=== PATIENT | female | born 1955 | race Caucasian/White ===

== ENCOUNTER → 2016-07-11 | Outpatient (CLI) | payer OTHER ==
[2016-07-11 14:41] LABS: MEAN CORPUSCULAR HEMOGLOBIN 26.8 pg (27.0-33.0); MEAN CORPUSCULAR HGB CONC 31.8 g/dl (32.0-36.5); MEAN CORPUSCULAR VOLUME 84.3 fl (80.0-96.0); RED CELL DISTRIBUTION WIDTH 13.3 % (11.5-14.5); WHITE BLOOD COUNT 5.3 K/mm3 (4.0-10.0)
[2016-07-11 15:43] LABS: VITAMIN B12 LEVEL 447 PG/ML (247-911)
[2016-07-11 15:54] LABS: ALBUMIN/GLOBULIN RATIO 1.33 (1.00-1.93); ALKALINE PHOSPHATASE 51 U/L (45-117); ALT/SGPT 18 U/L (12-78); ANION GAP 11 MEQ/L (8-16); AST/SGOT 16 U/L (15-37); BILIRUBIN,TOTAL 0.6 MG/DL (0.2-1.0); BLOOD UREA NITROGEN 10 MG/DL (7-18); CALCIUM LEVEL 9.3 MG/DL (8.8-10.2); CARBON DIOXIDE LEVEL 26 MEQ/L (21-32); CHLORIDE LEVEL 105 MEQ/L (98-107); CHOLESTEROL LEVEL 214 MG/DL (<200); CREATININE FOR GFR 0.76 MG/DL (0.55-1.02); FERRITIN 13 NG/ML (8-252); GLOMERULAR FILTRATION RATE > 60.0 (>45); GLUCOSE, FASTING 93 MG/DL (80-110); PERCENT SATURATION 20.6 % (13.2-37.4); POTASSIUM SERUM 4.3 MEQ/L (3.5-5.1); SODIUM LEVEL 142 MEQ/L (136-145); TOTAL IRON BINDING CAPACITY 436 UG/DL (250-450); TRIGLYCERIDES LEVEL 72 MG/DL (<150)
== END ==
LOC: M WUC 11:53
PROVIDERS: ATTEND Nurse Practitioner Adult Health
DX: Z86.2 Personal history of diseases of the blood and blood-forming organs and certain disorders involving the immune mechanism (principal); Z00.00 Encounter for general adult medical examination without abnormal findings

== ENCOUNTER → 2016-10-11 | Outpatient (CLI) | payer OTHER ==
[2016-10-14 00:06] LABS: Lyme Disease IgG/IgM Antibodie <0.91 ISR (0.00-0.90); Lyme Disease IgM Ab Quantitati <0.80 index (0.00-0.79)
== END ==
LOC: M WUC 16:40
PROVIDERS: ATTEND Nurse Practitioner Adult Health
DX: S80.869A Insect bite (nonvenomous), unspecified lower leg, initial encounter (principal); W57.XXXA Bitten or stung by nonvenomous insect and other nonvenomous arthropods, initial encounter; Y92.009 Unspecified place in unspecified non-institutional (private) residence as the place of occurrence of the external cause

== ENCOUNTER → 2017-09-08 | Outpatient (CLI) | payer OTHER ==
[2017-09-08 13:28] LABS: HEMOGLOBIN 13.1 g/dl (12.0-15.5); MEAN CORPUSCULAR HEMOGLOBIN 26.7 pg (27.0-33.0); MEAN CORPUSCULAR HGB CONC 32.8 g/dl (32.0-36.5); MEAN CORPUSCULAR VOLUME 81.5 fl (80.0-96.0); PLATELET COUNT, AUTOMATED 251 10^3/uL (150-450); RED BLOOD COUNT 4.91 10^6/uL (4.00-5.40); RED CELL DISTRIBUTION WIDTH 12.9 % (11.5-14.5); WHITE BLOOD COUNT 5.3 10^3/uL (4.0-10.0)
[2017-09-08 13:47] LABS: ALBUMIN 3.6 GM/DL (3.2-5.2); ALBUMIN/GLOBULIN RATIO 1.03 (1.00-1.93); ALKALINE PHOSPHATASE 56 U/L (45-117); ALT/SGPT 17 U/L (12-78); ANION GAP 7 MEQ/L (8-16); AST/SGOT 12 U/L (7-37); BILIRUBIN,TOTAL 0.6 MG/DL (0.2-1.0); BLOOD UREA NITROGEN 9 MG/DL (7-18); CALCIUM LEVEL 8.7 MG/DL (8.8-10.2); CARBON DIOXIDE LEVEL 28 MEQ/L (21-32); CHLORIDE LEVEL 108 MEQ/L (98-107); CHOLESTEROL LEVEL 212 MG/DL (<200); CHOLESTEROL RISK RATIO 3.925 (<5); CREATININE FOR GFR 0.59 MG/DL (0.55-1.30); GLOMERULAR FILTRATION RATE > 60.0 (>45); GLUCOSE, FASTING 92 MG/DL (70-100); HDL CHOLESTEROL 54 MG/DL (>40); LDL CHOLESTEROL 136.6 MG/DL (<100); NON-HDL-C 158 MG/DL; POTASSIUM SERUM 4.6 MEQ/L (3.5-5.1); SODIUM LEVEL 143 MEQ/L (136-145); THYROID STIMULATING HORMONE 0.921 uIU/ML (0.358-3.740); TOTAL PROTEIN 7.1 GM/DL (6.4-8.2); TRIGLYCERIDES LEVEL 107 MG/DL (<150)
[2017-09-09 09:55] LABS: VITAMIN B12 LEVEL 683 PG/ML (247-911)
[2017-09-11 14:47] LABS: VITAMIN D 1,25 DIHYDROXY 76.1 pg/mL (19.9-79.3)
== END ==
LOC: M WUC 11:11
DX: Z00.00 Encounter for general adult medical examination without abnormal findings (principal); E55.9 Vitamin D deficiency, unspecified; E53.8 Deficiency of other specified B group vitamins; Z86.2 Personal history of diseases of the blood and blood-forming organs and certain disorders involving the immune mechanism
CPT/HCPCS: 84443

== ENCOUNTER → 2018-08-25 | Outpatient (REF) | payer MEDICARE, OTHER ==
[2018-08-25 09:52] LABS: HEMATOCRIT 40.4 % (36.0-47.0); HEMOGLOBIN 12.9 g/dl (12.0-15.5); MEAN CORPUSCULAR HEMOGLOBIN 27.6 pg (27.0-33.0); MEAN CORPUSCULAR HGB CONC 31.9 g/dl (32.0-36.5); MEAN CORPUSCULAR VOLUME 86.3 fl (80.0-96.0); PLATELET COUNT, AUTOMATED 224 10^3/uL (150-450); RED BLOOD COUNT 4.68 10^6/uL (4.00-5.40); WHITE BLOOD COUNT 5.4 10^3/uL (4.0-10.0)
[2018-08-25 10:39] LABS: ALBUMIN 3.6 GM/DL (3.2-5.2); ALT/SGPT 22 U/L (12-78); BILIRUBIN,TOTAL 0.5 MG/DL (0.2-1.0); BLOOD UREA NITROGEN 12 MG/DL (7-18); CALCIUM LEVEL 8.5 MG/DL (8.8-10.2); CARBON DIOXIDE LEVEL 27 MEQ/L (21-32); CHLORIDE LEVEL 108 MEQ/L (98-107); CHOLESTEROL LEVEL 209 MG/DL (<200); CHOLESTEROL RISK RATIO 3.166 (<5); FERRITIN 7 NG/ML (8-252); GLOMERULAR FILTRATION RATE > 60.0 (>45); GLUCOSE, FASTING 92 MG/DL (70-100); HDL CHOLESTEROL 66 MG/DL (>40); IRON (FE) 43 UG/DL (50-170); LDL CHOLESTEROL 132 MG/DL (<100); NON-HDL-C 143 MG/DL; PERCENT SATURATION 9.5 % (13.2-45.0); POTASSIUM SERUM 4.5 MEQ/L (3.5-5.1); SODIUM LEVEL 144 MEQ/L (136-145); TOTAL 25(OH) VITAMIN D 48.2 NG/ML (30.0-100.0); TOTAL IRON BINDING CAPACITY 453 UG/DL (250-450); TOTAL PROTEIN 6.8 GM/DL (6.4-8.2); TRIGLYCERIDES LEVEL 55 MG/DL (<150)
[2018-08-25 11:07] LABS: VITAMIN B12 LEVEL 552 PG/ML (247-911)
== END ==
LOC: M SFHCPLAZ 08:13
PROVIDERS: ATTEND Nurse Practitioner Adult Health
DX: Z00.00 Encounter for general adult medical examination without abnormal findings (principal); E55.9 Vitamin D deficiency, unspecified; E53.8 Deficiency of other specified B group vitamins; Z86.2 Personal history of diseases of the blood and blood-forming organs and certain disorders involving the immune mechanism

== ENCOUNTER → 2019-09-15 | Outpatient (CLI) | payer MEDICARE, OTHER ==
[2019-09-15 11:02] LABS: HEMATOCRIT 42.4 % (36.0-47.0); HEMOGLOBIN 13.2 g/dl (12.0-15.5); MEAN CORPUSCULAR HEMOGLOBIN 26.5 pg (27.0-33.0); MEAN CORPUSCULAR HGB CONC 31.1 g/dl (32.0-36.5); MEAN CORPUSCULAR VOLUME 85.1 fl (80.0-96.0); PLATELET COUNT, AUTOMATED 248 10^3/uL (150-450); RED BLOOD COUNT 4.98 10^6/uL (4.00-5.40); WHITE BLOOD COUNT 5.1 10^3/uL (4.0-10.0)
[2019-09-15 11:53] LABS: ALBUMIN 3.9 GM/DL (3.2-5.2); ALT/SGPT 28 U/L (12-78); BILIRUBIN,TOTAL 0.6 MG/DL (0.2-1.0); BLOOD UREA NITROGEN 10 MG/DL (7-18); CALCIUM LEVEL 9.2 MG/DL (8.8-10.2); CARBON DIOXIDE LEVEL 28 MEQ/L (21-32); CHLORIDE LEVEL 107 MEQ/L (98-107); CHOLESTEROL LEVEL 240 MG/DL (<200); CHOLESTEROL RISK RATIO 3.636 (<5); CREATININE FOR GFR 0.67 MG/DL (0.55-1.30); FERRITIN 8 NG/ML (8-252); GLOMERULAR FILTRATION RATE > 60.0 (>45); GLUCOSE, FASTING 89 MG/DL (70-100); HDL CHOLESTEROL 66 MG/DL (>40); IRON (FE) 103 UG/DL (50-170); LDL CHOLESTEROL 158 MG/DL (<100); NON-HDL-C 174 MG/DL; POTASSIUM SERUM 4.5 MEQ/L (3.5-5.1); SODIUM LEVEL 140 MEQ/L (136-145); TOTAL PROTEIN 7.4 GM/DL (6.4-8.2); TRIGLYCERIDES LEVEL 82 MG/DL (<150)
[2019-09-15 13:57] LABS: VITAMIN B12 LEVEL 1103 PG/ML (247-911)
== END ==
LOC: M WUC 08:14
PROVIDERS: ATTEND Nurse Practitioner Adult Health
DX: Z00.00 Encounter for general adult medical examination without abnormal findings (principal); E55.9 Vitamin D deficiency, unspecified; E53.8 Deficiency of other specified B group vitamins; Z86.2 Personal history of diseases of the blood and blood-forming organs and certain disorders involving the immune mechanism; Z13.220 Encounter for screening for lipoid disorders

== ENCOUNTER → 2019-09-15 | Outpatient (CLI) | payer MEDICARE, OTHER ==
[2019-09-17 18:07] LABS: Lyme Disease IgG/IgM Antibodie <0.91 ISR (0.00-0.90); Lyme Disease IgM Ab Quantitati <0.80 index (0.00-0.79)
== END ==
LOC: M WUC 14:53
PROVIDERS: ATTEND Nurse Practitioner Family
DX: S00.86XA Insect bite (nonvenomous) of other part of head, initial encounter (principal); W57.XXXA Bitten or stung by nonvenomous insect and other nonvenomous arthropods, initial encounter; Y92.9 Unspecified place or not applicable

== ENCOUNTER 2020-06-25 13:35 | Emergency (ER) | payer MEDICARE, OTHER ==
[~2020-06-25] VITALS: Ht 157.5 cm; Wt 79.5 kg
[2020-06-25] MEDS ORDERED: CLON-412 PO (14:01)
[2020-06-25] MEDS ORDERED: LISI10TA22 PO (14:01)
--- NOTE | 2020-06-25 14:21 | REP ---
INDICATION: WEAKNESS. COMPARISON: None. TECHNIQUE: CT BRAIN PERFORMED IN THE AXIAL PLANE. CORONAL RECONSTRUCTION IMAGES ARE PERFORMED. FINDINGS: THE VENTRICLES ARE NORMAL IN SIZE AND POSITION. THERE IS NO MIDLINE SHIFT OR MASS EFFECT. GUILLERMO-WHITE DIFFERENTIATION IS WELL MAINTAINED. THERE IS NO ACUTE INTRACRANIAL HEMORRHAGE OR EXTRA-AXIAL FLUID COLLECTION. BONE WINDOW EXAMINATION IS UNREMARKABLE. VISUALIZED MASTOID AIR CELLS AND PARANASAL SINUSES ARE CLEAR. There are mild vascular calcifications in the carotid siphons. IMPRESSION: NEGATIVE NONCONTRAST CT BRAIN. <Electronically signed by Bean Guillermo > 06/25/20 [id number]
[2020-06-25] MEDS ORDERED: NS 1,000 ML IV SCH (14:25)
[2020-06-25 14:38] LABS: BASO # 0.1 10^3/uL (0.0-0.2); EOS # 0.4 10^3/uL (0.0-0.5); EOS % 6.7 % (0.0-3.0); HEMOGLOBIN 12.6 g/dl (12.0-15.5); LYMPH # 1.9 10^3/uL (1.5-5.0); LYMPH % 33.4 % (24.0-44.0); MEAN CORPUSCULAR HEMOGLOBIN 26.2 pg (27.0-33.0); MEAN CORPUSCULAR HGB CONC 31.5 g/dl (32.0-36.5); MEAN CORPUSCULAR VOLUME 83.2 fl (80.0-96.0); MONO # 0.5 10^3/uL (0.0-0.8); NEUTROPHILS # 2.9 10^3/uL (1.5-8.5); NEUTROPHILS % 49.7 % (36.0-66.0); PLATELET COUNT, AUTOMATED 226 10^3/uL (150-450); RED BLOOD COUNT 4.81 10^6/uL (4.00-5.40); WHITE BLOOD COUNT 5.8 10^3/uL (4.0-10.0)
[2020-06-25 15:01] LABS: ALBUMIN 3.6 GM/DL (3.2-5.2); ALT/SGPT 21 U/L (12-78); BILIRUBIN,DIRECT 0.1 MG/DL (0.0-0.2); BILIRUBIN,TOTAL 0.5 MG/DL (0.2-1.0); BLOOD UREA NITROGEN 10 MG/DL (7-18); CALCIUM LEVEL 8.8 MG/DL (8.8-10.2); CARBON DIOXIDE LEVEL 29 MEQ/L (21-32); CHLORIDE LEVEL 110 MEQ/L (98-107); CK-MB VALUE MASS < 1.0 NG/ML (<3.6); CPK CREATINE PHOSPHOKINASE 49 U/L (26-192); CREATININE FOR GFR 0.62 MG/DL (0.55-1.30); GLOMERULAR FILTRATION RATE > 60.0 (>45); GLUCOSE, FASTING 87 MG/DL (70-100); LIPASE 61 U/L (73-393); MAGNESIUM LEVEL 2.3 MG/DL (1.8-2.4); MB/CK RELATIVE INDEX 2.04 (< OR =4); POTASSIUM SERUM 4.1 MEQ/L (3.5-5.1); SODIUM LEVEL 142 MEQ/L (136-145); TOTAL PROTEIN 6.6 GM/DL (6.4-8.2); TROPONIN I < 0.02 NG/ML (< 0.10)
--- NOTE | 2020-06-25 17:20 | REPVR ---
PROCEDURE INFORMATION: Exam: MR Head Without Contrast Exam date and time: 06/25/2020 3:11 PM Age: 65 years old Clinical indication: Weakness, extremity; Left; Additional info: Left leg weak TECHNIQUE: Imaging protocol: MR of the head without contrast. COMPARISON: CT Head without contrast 06/25/2020 1:58 PM FINDINGS: Brain: Patchy T2 prolongation in the cerebral white matter is nonspecific, but likely secondary to microvascular disease. Diffusion images are normal. No evidence of acute infarction. No evidence of acute intracranial hemorrhage. No extra-axial fluid collections. Ventricles and cerebrospinal fluid spaces are normal in size and configuration for the patient's age. There is no evidence of mass-effect or midline shift. Flow voids of the pilot point of [place] and major cerebral vascular structures appear intact. Craniocervical junction appears unremarkable, with normal position of cerebellar tonsils and no evidence of Chiari I malformation. Cerebral ventricles: Normal. No ventriculomegaly. Bones/joints: Unremarkable as visualized. Paranasal sinuses: There is mucosal thickening in maxillary and ethmoid sinuses and small maxillary sinuses retention cysts or polyps. Mastoid air cells: No significant mastoid effusion. Orbital cavity: Unremarkable. Soft tissues: Unremarkable as visualized. IMPRESSION: 1. No acute infarct or hemorrhage. No evidence mass lesion. Microvascular changes. 2. Given the patients clinical history and / or findings on MRI, MRA to assess the intracranial vascular system would be appropriate. Electronically signed by: Brandi Glaser On 06/25/2020 17:20:41 PM
--- NOTE | 2020-06-25 17:21 | REPVR ---
PROCEDURE INFORMATION: Exam: MRA Head Without Contrast; Arteriography Exam date and time: 06/25/2020 3:11 PM Age: 65 years old Clinical indication: Weakness; Additional info: Left leg weak TECHNIQUE: Imaging protocol: Magnetic resonance angiography head without contrast. Exam focused on the arteries. COMPARISON: CT Head without contrast 06/25/2020 1:58 PM FINDINGS: ANTERIOR CIRCULATION: Right internal carotid artery: Right internal carotid artery is patent with no thrombosis, or occlusion. There is a small protrusion from right internal carotid artery posteriorly at supraclinoid level. This is fairly conical in shape measuring approximately 1 mm and is favored to be infundibulum. This could also be further evaluated with CTA. Right middle cerebral artery: No occlusion or significant stenosis. No aneurysm. Right anterior cerebral artery: No occlusion or significant stenosis. No aneurysm. Left internal carotid artery: Left internal carotid artery is patent without stenosis, thrombosis, or occlusion. There is a small prominent/protrusion of approximately 1.5 mm as visualized from supraclinoid aspect left ICA which appears to be at level of ophthalmic artery and could be infundibulum since the ophthalmic artery appears to possibly arise from apex. Small aneurysm is however not excluded. This may be further evaluated improved resolution of small vascular abnormalities with CTA. Recommend MIP and 3D reformatted images. Left middle cerebral artery: No occlusion or significant stenosis. No aneurysm. Left anterior cerebral artery: No occlusion or significant stenosis. No aneurysm. POSTERIOR CIRCULATION: Right vertebral artery: No occlusion or significant stenosis. No aneurysm. Left vertebral artery: No occlusion or significant stenosis. No aneurysm. Basilar artery: No occlusion or significant stenosis. No aneurysm. Patent superior cerebellar arteries. Right posterior cerebral artery: No occlusion or significant stenosis. No aneurysm. Left posterior cerebral artery: No occlusion or significant stenosis. No aneurysm. IMPRESSION: 1. No intracranial vascular stenosis or occlusion. 2. Small protrusion from posterior right supraclinoid ICA favored to be infundibulum. Small protrusion from anterior supraclinoid left ICA appears to rise at level of ophthalmic artery and could also be infundibulum but aneurysm is not excluded. Consider CTA in further evaluation. Electronically signed by: Brandi Glaser On 06/25/2020 17:21:33 PM
[2020-06-25] MEDS ORDERED: ISOVUE-370 76% 100ML VIAL As Ordered ONE (17:58)
--- NOTE | 2020-06-25 18:37 | REPVR ---
PROCEDURE INFORMATION: Exam: CT Angiography Neck With Contrast Exam date and time: 06/25/2020 6:09 PM Age: 65 years old Clinical indication: Abnormal findings; Abnormal mri of head; Additional info: ? Aneurysm on mri TECHNIQUE: Imaging protocol: Computed tomography angiography of the neck with contrast. 3D rendering (Not supervised by radiologist): MIP and/or 3D reconstructed images were created by the technologist. Radiation optimization: All CT scans at this facility use at least one of these dose optimization techniques: automated exposure control; mA and/or kV adjustment per patient size (includes targeted exams where dose is matched to clinical indication); or iterative reconstruction. Contrast material: ISOVUE 370; Contrast volume: 100 ml; Contrast route: INTRAVENOUS (IV); COMPARISON: No relevant prior studies available. FINDINGS: Right common carotid artery: No stenosis. No dissection or occlusion. Right internal carotid artery: There is atherosclerotic change at right carotid bifurcation and bulb. There is no significant stenosis, thrombosis, occlusion, or evidence of dissection. Right external carotid artery: No occlusion or stenosis of the origin. Right vertebral artery: No stenosis. No dissection or occlusion. Left common carotid artery: No stenosis. No dissection or occlusion. Left internal carotid artery: There is atherosclerotic change at left carotid bifurcation and bulb. There is no significant stenosis, thrombosis, occlusion, or evidence of dissection. Left external carotid artery: No occlusion or stenosis of the origin. Left vertebral artery: No stenosis. No dissection or occlusion. Subclavian arteries: There is mild atherosclerotic change of subclavian arteries without focal stenosis. Aorta: There is atherosclerotic change in aortic arch. No aneurysm or dissection. Three vessel aortic arch with mild atherosclerotic change but no stenosis. Bones/joints: There are degenerative changes spine with mild bilateral C5-C6 and left C6-C7 neural foraminal narrowing without significant degrees of spinal stenosis. Soft tissues: Normal. No significant soft tissue swelling. IMPRESSION: Atherosclerotic change. No significant cervical vascular stenosis or vascular occlusion. REFERENCES: NASCET CRITERIA. The degree of internal carotid artery stenosis is based on NASCET criteria. Normal is no stenosis. Mild is less than 50% stenosis. Moderate is 50-69% stenosis. Severe is 70% to 99% stenosis. Total occlusion is no detectable patent lumen. Electronically signed by: Brandi Glaser On 06/25/2020 18:38:06 PM
--- NOTE | 2020-06-25 18:49 | REPVR ---
PROCEDURE INFORMATION: Exam: CT Angiography Head With Contrast Exam date and time: 06/25/2020 6:09 PM Age: 65 years old Clinical indication: Abnormal findings; Abnormal mri of head; Additional info: ? Aneurysm on mri TECHNIQUE: Imaging protocol: Computed tomography angiography of the head with intravenous contrast. 3D rendering (Not supervised by radiologist): MIP and/or 3D reconstructed images were created by the technologist. Radiation optimization: All CT scans at this facility use at least one of these dose optimization techniques: automated exposure control; mA and/or kV adjustment per patient size (includes targeted exams where dose is matched to clinical indication); or iterative reconstruction. Contrast material: ISOVUE 370; Contrast volume: 100 ml; Contrast route: INTRAVENOUS (IV); COMPARISON: MRA BRAIN W/O CONTRAST 06/25/2020 4:18 PM FINDINGS: ANTERIOR CIRCULATION: Right internal carotid artery: There is mild calcification of the intracranial right internal carotid artery. No significant degrees of stenosis, thrombosis, or occlusion. Again seen is a small and approximately 1 mm protrusion projecting posteriorly from supraclinoid ICA. This again shows a cone shaped appearance more suggestive of a small infundibulum and the size would also be within size range for an infundibulum. However, CTA does not definitively confirm a vessel arising from the apex but this may be that vessel is too small to be resolved with CT angiography. Follow-up may be helpful to assure stability. Right middle cerebral artery: Unremarkable. No occlusion or significant stenosis. No aneurysm. Right anterior cerebral artery: Unremarkable. No occlusion or significant stenosis. No aneurysm. Left internal carotid artery: There is mild calcification of the intracranial left internal carotid artery. No significant degrees of stenosis, thrombosis, or occlusion. Again seen is a small protrusion projecting anteriorly from the paraclinoid ICA at level of ophthalmic artery origin. On sagittal series 405, image 57, this does appear more conical/ linear rather than saccular and therefore may represent infundibulum. However, unfortunately, this cannot be well traced into the ophthalmic artery on the sagittal images due to adjacent clinoid process with the bone limiting evaluation and this cannot be evaluated on the coronal images due to the adjacent bone obscuring this small protrusion. This would also be within size range for an infundibulum. However, due to incomplete further evaluation, a very small aneurysm is not completely excluded. This measures less than 2 mm on both MRA and CTA. Left middle cerebral artery: Unremarkable. No occlusion or significant stenosis. No aneurysm. Left anterior cerebral artery: Unremarkable. No occlusion or significant stenosis. No aneurysm. POSTERIOR CIRCULATION: Right vertebral artery: Unremarkable. No occlusion or significant stenosis. No aneurysm. Left vertebral artery: Unremarkable. No occlusion or significant stenosis. No aneurysm. Basilar artery: Unremarkable. No occlusion or significant stenosis. No aneurysm. Right posterior cerebral artery: Unremarkable. No occlusion or significant stenosis. No aneurysm. Left posterior cerebral artery: Unremarkable. No occlusion or significant stenosis. No aneurysm. IMPRESSION: 1. Small protrusions distal ICAs bilaterally may certainly be infundibulum which is favored although very small aneurysm not completely excluded. Follow-up imaging for stability is suggested. 2. No evidence of intracranial vascular stenosis or occlusion. Electronically signed by: Brandi Glaser On 06/25/2020 18:49:15 PM
[2020-06-25 19:00] VITALS: BP 187/82
--- NOTE | 2020-06-26 07:17 | ED PDOC ---
Post-Departure Follow-Up radiology report faxed to Kate Medina MD Jun 26, 2020 07:17
--- NOTE | 2020-06-26 15:43 | ECGEPIP ---
[facility] - ED Test Date: 2020-06-25 Pat Name: ROSALVA ROMERO Department: Room: - Gender: Female Quality Auditor: MUNA : 1955 Requested By: Kate Jacques Order Number: [id number] Reading MD: Saul Rey Measurements Intervals [place] Rate: 58 P: 37 CT: 188 QRS: 64 QRSD: 82 T: 41 QT: 426 QTc: 418 Interpretive Statements Sinus bradycardia with sinus arrhythmia Nonspecific T wave abnormality Comparison tracing not on file Electronically Signed on 06-26-2020 15:43:49 EDT by Saul Rey
== END 2020-06-25 19:36 | disposition home or self-care (01) ==
LOC: M ED 13:35
DX: I10 Essential (primary) hypertension (principal); Z79.899 Other long term (current) drug therapy; R53.1 Weakness
CPT/HCPCS: 70450; 70496; 70498; 70544; 70551; 80048; 80076; 81001; 82550; 82553; 83690; 83735; 84484; 85025; 87088; 87186; 93005; 93041; 96360; 96361; 99285; Q9967

== ENCOUNTER → 2020-10-03 | Outpatient (CLI) | payer MEDICARE, OTHER ==
[~2020-10-03] MED LIST: CLON-412 PO; LISI10TA22 PO
[2020-10-03 16:56] LABS: HEMATOCRIT 40.3 % (36.0-47.0); HEMOGLOBIN 12.8 g/dl (12.0-15.5); MEAN CORPUSCULAR HEMOGLOBIN 26.9 pg (27.0-33.0); MEAN CORPUSCULAR HGB CONC 31.8 g/dl (32.0-36.5); MEAN CORPUSCULAR VOLUME 84.8 fl (80.0-96.0); PLATELET COUNT, AUTOMATED 230 10^3/uL (150-450); RED BLOOD COUNT 4.75 10^6/uL (4.00-5.40); WHITE BLOOD COUNT 4.6 10^3/uL (4.0-10.0)
[2020-10-03 17:25] LABS: ALBUMIN 3.8 GM/DL (3.2-5.2); ALT/SGPT 23 U/L (12-78); BILIRUBIN,TOTAL 0.5 MG/DL (0.2-1.0); BLOOD UREA NITROGEN 9 MG/DL (7-18); CALCIUM LEVEL 8.8 MG/DL (8.8-10.2); CARBON DIOXIDE LEVEL 27 MEQ/L (21-32); CHLORIDE LEVEL 108 MEQ/L (98-107); CHOLESTEROL LEVEL 212 MG/DL (<200); CHOLESTEROL RISK RATIO 3.365 (<5); FERRITIN 9 NG/ML (8-252); GLOMERULAR FILTRATION RATE > 60.0 (>45); GLUCOSE, FASTING 87 MG/DL (70-100); HDL CHOLESTEROL 63 MG/DL (>40); IRON (FE) 50 UG/DL (50-170); LDL CHOLESTEROL 135 MG/DL (<100); NON-HDL-C 149 MG/DL; POTASSIUM SERUM 4.3 MEQ/L (3.5-5.1); SODIUM LEVEL 140 MEQ/L (136-145); THYROID STIMULATING HORMONE 0.958 uIU/ML (0.358-3.740); TOTAL 25(OH) VITAMIN D 28.7 NG/ML (30.0-100.0); TOTAL PROTEIN 6.8 GM/DL (6.4-8.2); TRIGLYCERIDES LEVEL 69 MG/DL (<150); VITAMIN B12 LEVEL 588 PG/ML (247-911)
== END ==
LOC: M WUC 12:03
PROVIDERS: ATTEND Nurse Practitioner Adult Health
DX: Z00.00 Encounter for general adult medical examination without abnormal findings (principal); Z13.220 Encounter for screening for lipoid disorders; Z86.2 Personal history of diseases of the blood and blood-forming organs and certain disorders involving the immune mechanism; E53.8 Deficiency of other specified B group vitamins; Z79.899 Other long term (current) drug therapy

== ENCOUNTER → 2020-10-04 | Outpatient (CLI) | payer MEDICARE, OTHER ==
--- NOTE | 2020-10-04 13:58 | REP ---
INDICATION: LOW BACK PAIN. COMPARISON: None. TECHNIQUE: Five views lumbosacral spine performed. FINDINGS: There is no compression fracture. There is minor grade 1 anterior spondylolisthesis of L4 on L5 without evidence of spondylolysis. There is very mild disc space narrowing at L4-5 and L5-S1, with sclerosis and spurring at the posterior facet joints at both of those levels. The posterior elements are intact. IMPRESSION: Degenerative changes without evidence of acute compression fracture. <Electronically signed by Bean Guillermo > 10/04/20 0109
== END ==
LOC: M PLAIMG 11:09
PROVIDERS: ATTEND Nurse Practitioner Adult Health
DX: M43.16 Spondylolisthesis, lumbar region (principal); M51.36 Other intervertebral disc degeneration, lumbar region; M51.37 Other intervertebral disc degeneration, lumbosacral region; M54.5 Low back pain
CPT/HCPCS: 72100; G0463

== ENCOUNTER → 2020-10-13 | Outpatient (CLI) | payer MEDICARE, OTHER ==
[~2020-10-13] MED LIST changes: +ISOVUE-370 76% 100ML VIAL As Ordered ONE
--- NOTE | 2020-10-13 15:38 | REP ---
INDICATION: LUNG NODULE. COMPARISON: None available, order states "CT in [place] with 5 mm nodule". TECHNIQUE: Helical scanning through the chest after bolus of 75 mL Isovue 370 with both coronal and sagittal reconstructions. FINDINGS: Of the lung watler are well inflated. Some minor curvilinear atelectatic or fibrotic change in the lingula superior segment and medial segment of the right middle lobe, opposite size of the anterior lower chest. Some dependent atelectatic changes deep sulcus right lower lobe. No pleural effusion. Some minor linear atelectatic or fibrotic change in the deep sulcus and medial basal segment of the right lower lobe. No pleural effusion, pleural thickening or calcified pleural plaque. I see no parenchymal mass or acute infiltrate. There is a 4 mm nodule on image 72 lateral basal segment left lower lobe the near the mid axillary line. I cannot discern if this is the previously described nodule without images and or report. No other nodule seen. I do not see pleural plaque, calcified plaque or sclerotic bone lesion in ribs on either side. No nodule suggested on the chest wall that project over the lungs costal cartilages have a symmetric appearance without definitely suspicious calcification. Heart is not enlarged. There is no pericardial thickening or effusion. The aorta is without aneurysm or dissection. The main, right, left and lobar pulmonary arteries are without filling defects. There is no pathologic sized mediastinal or hilar adenopathy. Tracheal airway intact. No axillary or supraclavicular mass. Bone windows show thoracic spine without kyphosis or scoliosis. No compression deformity or focal lesion. The sternum, manubrium, clavicles, AC joints, scapulae, humeral heads and visualized ribs were all grossly intact. The upper abdomen shows no definite hiatal hernia. Stomach collapsed. Liver and spleen are without acute finding and no hepatosplenomegaly. That portion of gallbladder is seen shows no calcified stone. Right kidney shows scarring posteriorly and superiorly in the upper pole. Left kidney in its visible portion is unremarkable. The aorta has atherosclerotic calcification but no aneurysm. A portion of pancreas and bowel loops in the upper abdomen unremarkable. Adrenal glands normal. IMPRESSION: 1. Some dependent atelectatic changes in the curvilinear fibrosis in the bases left greater than right in the deep sulcus as well as some curvilinear fibrotic or atelectatic change in the lingula and medial segment right middle lobe. 2. Heart not grossly enlarged. No pericardial thickening or effusion. 3. See no definite parenchymal pulmonary nodule, acute infiltrate, parenchymal mass, pleural plaque or calcified plaque. 4. A 4 mm nodule lateral basal segment left lower lobe is pleural based and may be nodule described in the order seen on outside CT in [place]. <Electronically signed by Pop Goncalves > 10/13/20 1537
== END ==
LOC: M RAD 14:22
PROVIDERS: ATTEND Nurse Practitioner Adult Health
DX: R91.1 Solitary pulmonary nodule (principal)
CPT/HCPCS: 71260; Q9967

== ENCOUNTER → 2021-07-13 | Outpatient (CLI) | payer MEDICARE, OTHER ==
[~2021-07-13] MED LIST changes: -ISOVUE-370 76% 100ML VIAL As Ordered ONE
[2021-07-13 12:45] LABS: HEMOGLOBIN 12.6 g/dl (12.0-15.5); MEAN CORPUSCULAR HEMOGLOBIN 27.3 pg (27.0-33.0); MEAN CORPUSCULAR HGB CONC 32.3 g/dl (32.0-36.5); MEAN CORPUSCULAR VOLUME 84.6 fl (80.0-96.0); PLATELET COUNT, AUTOMATED 255 10^3/uL (150-450); RED BLOOD COUNT 4.61 10^6/uL (4.00-5.40); WHITE BLOOD COUNT 6.2 10^3/uL (4.0-10.0)
[2021-07-13 13:19] LABS: ALBUMIN 3.9 GM/DL (3.2-5.2); ALT/SGPT 24 U/L (12-78); BILIRUBIN,TOTAL 0.7 MG/DL (0.2-1.0); BLOOD UREA NITROGEN 9 MG/DL (7-18); CALCIUM LEVEL 9.7 MG/DL (8.8-10.2); CARBON DIOXIDE LEVEL 28 MEQ/L (21-32); CHLORIDE LEVEL 107 MEQ/L (98-107); CHOLESTEROL LEVEL 221 MG/DL (<200); CHOLESTEROL RISK RATIO 3.745 (<5); CREATININE FOR GFR 0.65 MG/DL (0.55-1.30); FERRITIN 23 NG/ML (8-252); GLOMERULAR FILTRATION RATE > 60.0 (>45); GLUCOSE, FASTING 101 MG/DL (70-100); HDL CHOLESTEROL 59 MG/DL (>40); IRON (FE) 54 UG/DL (50-170); LDL CHOLESTEROL 144 MG/DL (<100); NON-HDL-C 162 MG/DL; PERCENT SATURATION 14.4 % (13.2-45.0); POTASSIUM SERUM 4.5 MEQ/L (3.5-5.1); SODIUM LEVEL 140 MEQ/L (136-145); TOTAL 25(OH) VITAMIN D 29.2 NG/ML (30.0-100.0); TOTAL IRON BINDING CAPACITY 375 UG/DL (250-450); TOTAL PROTEIN 6.8 GM/DL (6.4-8.2); TRIGLYCERIDES LEVEL 92 MG/DL (<150)
[2021-07-13 13:20] LABS: VITAMIN B12 LEVEL 691 PG/ML (247-911)
== END ==
LOC: M WUC 10:18
PROVIDERS: ATTEND Nurse Practitioner Adult Health
DX: Z00.00 Encounter for general adult medical examination without abnormal findings (principal); E53.8 Deficiency of other specified B group vitamins; I10 Essential (primary) hypertension; Z13.220 Encounter for screening for lipoid disorders; Z13.29 Encounter for screening for other suspected endocrine disorder; E55.9 Vitamin D deficiency, unspecified; Z86.2 Personal history of diseases of the blood and blood-forming organs and certain disorders involving the immune mechanism; Z79.899 Other long term (current) drug therapy

== ENCOUNTER → 2021-07-21 | Outpatient (CLI) | payer MEDICARE, OTHER ==
[~2021-07-21] MED LIST changes: +ISOVUE-370 76% 100ML VIAL As Ordered ONE
== END ==
LOC: M RAD 14:31
PROVIDERS: ATTEND Nurse Practitioner Adult Health
DX: R91.1 Solitary pulmonary nodule (principal)
CPT/HCPCS: 71260; Q9967

== ENCOUNTER → 2021-07-24 | Outpatient (CLI) | payer MEDICARE, OTHER ==
[~2021-07-24] MED LIST changes: -ISOVUE-370 76% 100ML VIAL As Ordered ONE
== END ==
LOC: M WUC 10:42
PROVIDERS: ATTEND Nurse Practitioner Adult Health
DX: M43.02 Spondylolysis, cervical region (principal); M25.78 Osteophyte, vertebrae; M48.02 Spinal stenosis, cervical region; M43.04 Spondylolysis, thoracic region; I25.10 Atherosclerotic heart disease of native coronary artery without angina pectoris

== ENCOUNTER → 2021-12-22 | Outpatient (CLI) | payer MEDICARE, OTHER ==
[2021-12-22 12:39] LABS: HEMOGLOBIN 12.5 g/dl (12.0-15.5); MEAN CORPUSCULAR HEMOGLOBIN 28.3 pg (27.0-33.0); MEAN CORPUSCULAR HGB CONC 32.9 g/dl (32.0-36.5); MEAN CORPUSCULAR VOLUME 86.2 fl (80.0-96.0); PLATELET COUNT, AUTOMATED 246 10^3/uL (150-450); RED BLOOD COUNT 4.41 10^6/uL (4.00-5.40); WHITE BLOOD COUNT 5.4 10^3/uL (4.0-10.0)
[2021-12-22 13:23] LABS: ALBUMIN 3.6 GM/DL (3.2-5.2); ALT/SGPT 28 U/L (12-78); BILIRUBIN,TOTAL 0.5 MG/DL (0.2-1.0); BLOOD UREA NITROGEN 14 MG/DL (7-18); CALCIUM LEVEL 8.8 MG/DL (8.8-10.2); CARBON DIOXIDE LEVEL 29 MEQ/L (21-32); CHLORIDE LEVEL 106 MEQ/L (98-107); CHOLESTEROL LEVEL 215 MG/DL (<200); CHOLESTEROL RISK RATIO 3.028 (<5); CREATININE FOR GFR 0.71 MG/DL (0.55-1.30); FERRITIN 10 NG/ML (8-252); GLOMERULAR FILTRATION RATE > 60.0 (>45); GLUCOSE, FASTING 105 MG/DL (70-100); HDL CHOLESTEROL 71 MG/DL (>40); IRON (FE) 60 UG/DL (50-170); LDL CHOLESTEROL 133 MG/DL (<100); NON-HDL-C 144 MG/DL; PERCENT SATURATION 14.6 % (13.2-45.0); POTASSIUM SERUM 4.2 MEQ/L (3.5-5.1); SODIUM LEVEL 138 MEQ/L (136-145); TOTAL IRON BINDING CAPACITY 410 UG/DL (250-450); TOTAL PROTEIN 6.7 GM/DL (6.4-8.2); TRIGLYCERIDES LEVEL 56 MG/DL (<150)
[2021-12-22 14:49] LABS: TOTAL 25(OH) VITAMIN D 31.3 NG/ML (30.0-100.0)
[2021-12-22 14:51] LABS: VITAMIN B12 LEVEL 576 PG/ML (247-911)
== END ==
LOC: M WUC 11:15
PROVIDERS: ATTEND Nurse Practitioner Adult Health
DX: Z86.2 Personal history of diseases of the blood and blood-forming organs and certain disorders involving the immune mechanism (principal); I10 Essential (primary) hypertension; Z00.00 Encounter for general adult medical examination without abnormal findings; Z13.220 Encounter for screening for lipoid disorders; Z79.899 Other long term (current) drug therapy

== ENCOUNTER → 2022-06-28 | Outpatient (REF) | payer MEDICARE, OTHER | LOC: M SFHCPLAZ 14:47 | PROVIDERS: ATTEND Nurse Practitioner Adult Health | DX: Z53.9 Procedure and treatment not carried out, unspecified reason (principal) ==

== ENCOUNTER → 2022-08-16 | Outpatient (CLI) | payer MEDICARE, OTHER ==
[2022-08-16 10:06] LABS: HEMATOCRIT 41.6 % (36.0-47.0); HEMOGLOBIN 13.2 g/dl (12.0-15.5); MEAN CORPUSCULAR HEMOGLOBIN 27.7 pg (27.0-33.0); MEAN CORPUSCULAR HGB CONC 31.7 g/dl (32.0-36.5); MEAN CORPUSCULAR VOLUME 87.2 fl (80.0-96.0); PLATELET COUNT, AUTOMATED 278 10^3/uL (150-450); RED BLOOD COUNT 4.77 10^6/uL (4.00-5.40); WHITE BLOOD COUNT 5.7 10^3/uL (4.0-10.0)
[2022-08-16 10:40] LABS: IRON (FE) 43 UG/DL (50-170); PERCENT SATURATION 11.8 % (13.2-45.0); TOTAL IRON BINDING CAPACITY 363 UG/DL (250-425)
[2022-08-16 10:41] LABS: ALBUMIN 3.7 G/DL (3.2-5.2); ALKALINE PHOSPHATASE 63 U/L (46-116); ALT/SGPT 21 U/L (7.0-40); AST/SGOT 21 U/L (<34); BILIRUBIN,TOTAL 0.5 MG/DL (0.3-1.2); BLOOD UREA NITROGEN 10 MG/DL (9-23); CALCIUM LEVEL 8.7 MG/DL (8.3-10.6); CARBON DIOXIDE LEVEL 28 MMOL/L (20-31); CHLORIDE LEVEL 107 MMOL/L (98-107); CHOLESTEROL LEVEL 208 MG/DL (<200); CHOLESTEROL RISK RATIO 3.74 (<5); CREATININE FOR GFR 0.61 MG/DL (0.55-1.30); GLOMERULAR FILTRATION RATE > 60.0 (>45); GLUCOSE, FASTING 97 MG/DL (74-106); HDL CHOLESTEROL 55.5 MG/DL (>40); LDL CHOLESTEROL 130.1 MG/DL (<100); NON-HDL-C 152.5 MG/DL; POTASSIUM SERUM 4.2 MMOL/L (3.5-5.1); SODIUM LEVEL 140 MMOL/L (136-145); TOTAL PROTEIN 6.4 G/DL (5.7-8.2); TRIGLYCERIDES LEVEL 112 MG/DL (<150)
[2022-08-16 10:42] LABS: VITAMIN B12 LEVEL 634 PG/ML (211-911)
[2022-08-16 10:43] LABS: FERRITIN 9.2 NG/ML (7.3-270.7); THYROID STIMULATING HORMONE 1.502 uIU/ML (0.55-4.78); TOTAL 25(OH) VITAMIN D 22.1 NG/ML (20.0-100.0)
== END ==
LOC: M WUC 08:07
PROVIDERS: ATTEND Nurse Practitioner Adult Health
DX: E53.8 Deficiency of other specified B group vitamins (principal)

== ENCOUNTER → 2022-08-24 | Outpatient (CLI) | payer MEDICARE, OTHER ==
[~2022-08-24] MED LIST changes: +ISOVUE-370 76% 100ML VIAL As Ordered ONE
== END ==
LOC: M RAD 08:35
PROVIDERS: ATTEND Nurse Practitioner Adult Health
DX: R91.1 Solitary pulmonary nodule (principal)
CPT/HCPCS: 71260; Q9967

== ENCOUNTER → 2022-09-11 | Outpatient (CLI) | payer MEDICARE, OTHER ==
[~2022-09-11] MED LIST changes: -ISOVUE-370 76% 100ML VIAL As Ordered ONE
[2022-09-13 15:09] LABS: ANA (HEP2) Positive (.); ANCA-ATYPICAL <1:20 titer (Neg:<1:20); ANGIOTENSIN 1 CONVERTING ENZYM 61 U/L (14-82); CYCLIC CITRULLINATED PEPTIDE 6 units (0-19); CYTOPLASMIC NEUTROP AB ANCA-C <1:20 titer (Neg:<1:20); PERINUCLEAR AB ANCA-P <1:20 titer (Neg:<1:20)
== END ==
LOC: M WUC 09:01
PROVIDERS: ATTEND Nurse Practitioner Adult Health
DX: M25.50 Pain in unspecified joint (principal)

== ENCOUNTER 2022-11-30 07:33 | Emergency (ER) | payer MEDICARE, OTHER ==
[~2022-11-30] VITALS: Ht 157.5 cm; Wt 76.1 kg
[2022-11-30] MEDS ORDERED: AMLO1TAB24 (07:45)
[2022-11-30] MEDS ORDERED: IRBE300T7 (07:45)
[2022-11-30] MEDS ORDERED: NS 1,000 ML IV ONE (08:55)
[2022-11-30 09:37] LABS: BASO # 0.1 10^3/uL (0.0-0.2); BASO % 1.1 % (0.0-1.0); EOS # 0.3 10^3/uL (0.0-0.5); EOS % 4.4 % (0.0-3.0); HEMATOCRIT 42.2 % (36.0-47.0); HEMOGLOBIN 13.5 g/dl (12.0-15.5); LYMPH # 1.7 10^3/uL (1.5-5.0); LYMPH % 29.4 % (24.0-44.0); MEAN CORPUSCULAR HEMOGLOBIN 26.8 pg (27.0-33.0); MEAN CORPUSCULAR VOLUME 83.9 fl (80.0-96.0); MONO # 0.6 10^3/uL (0.0-0.8); MONO % 10.6 % (2.0-8.0); NEUTROPHILS # 3.1 10^3/uL (1.5-8.5); PLATELET COUNT, AUTOMATED 250 10^3/uL (150-450); RED BLOOD COUNT 5.03 10^6/uL (4.00-5.40); WHITE BLOOD COUNT 5.7 10^3/uL (4.0-10.0)
[2022-11-30] MEDS: GASTROGRAFIN SOLUTION 30ML PO SCH ×2 (09:40→10:15)
[2022-11-30 09:49] LABS: LIPASE 26 U/L (12-53)
[2022-11-30 09:51] LABS: ALBUMIN 3.9 G/DL (3.2-5.2); ALKALINE PHOSPHATASE 61 U/L (46-116); ALT/SGPT 24 U/L (7.0-40); AST/SGOT 14 U/L (<34); BILIRUBIN,DIRECT 0.2 MG/DL (<0.4); BILIRUBIN,TOTAL 0.7 MG/DL (0.3-1.2); BLOOD UREA NITROGEN 11 MG/DL (9-23); CALCIUM LEVEL 9.6 MG/DL (8.3-10.6); CARBON DIOXIDE LEVEL 28 MMOL/L (20-31); CHLORIDE LEVEL 107 MMOL/L (98-107); CREATININE FOR GFR 0.67 MG/DL (0.55-1.30); GLOMERULAR FILTRATION RATE > 60.0 (>45); GLUCOSE, FASTING 98 MG/DL (74-106); POTASSIUM SERUM 4.1 MMOL/L (3.5-5.1); SODIUM LEVEL 141 MMOL/L (136-145); TOTAL PROTEIN 6.9 G/DL (5.7-8.2)
[2022-11-30] MEDS ORDERED: ISOVUE-370 76% 100ML VIAL As Ordered ONE (11:12)
[2022-11-30] MEDS ORDERED: MACR100C43 PO (14:07)
[2022-11-30] MEDS ORDERED: MIRA3350 PO (14:07)
[2022-11-30 14:36] VITALS: BP 142/63; TEMP 97.4; O2SAT 99
[2022-11-30 14:49] LABS: FREE T4 1.16 NG/DL (0.89-1.76)
[2022-11-30 14:50] LABS: THYROID STIMULATING HORMONE 1.494 uIU/ML (0.55-4.78)
== END 2022-11-30 14:40 | disposition home or self-care (01) ==
LOC: M ED 07:33
DX: N30.00 Acute cystitis without hematuria (principal); K59.00 Constipation, unspecified; I10 Essential (primary) hypertension; Z79.811 Long term (current) use of aromatase inhibitors; Z79.899 Other long term (current) drug therapy
CPT/HCPCS: 74177; 80048; 80076; 81001; 83605; 83690; 84439; 84443; 85025; 87088; 87186; 96360; 99284; Q9963; Q9967

== ENCOUNTER → 2023-10-10 | Outpatient (CLI) | payer MEDICARE, OTHER ==
[~2023-10-10] MED LIST changes: +AMLO1TAB24; +IRBE300T25; +ISOVUE-370 76% 100ML VIAL As Ordered ONE; +MACR100C43 PO; +MIRA3350 PO
== END ==
LOC: M RAD 13:01
PROVIDERS: ATTEND Internal Medicine
DX: R91.1 Solitary pulmonary nodule (principal)
CPT/HCPCS: 71260; Q9967

== ENCOUNTER → 2024-01-16 | Outpatient (REF) | payer MEDICARE, OTHER ==
[~2024-01-16] MED LIST changes: -ISOVUE-370 76% 100ML VIAL As Ordered ONE
== END ==
LOC: M LAB REF 16:21
PROVIDERS: ATTEND Internal Medicine
DX: N39.0 Urinary tract infection, site not specified (principal)

== ENCOUNTER → 2024-07-02 | Outpatient (CLI) | payer MEDICARE, OTHER ==
[~2024-07-02] MED LIST changes: +ISOVUE-370 76% 100ML VIAL As Ordered ONE
== END ==
LOC: M RAD 09:33
PROVIDERS: ATTEND Internal Medicine
DX: R91.1 Solitary pulmonary nodule (principal)
CPT/HCPCS: 71260; Q9967